=== PATIENT | male | born 1995 | race Caucasian/White ===

== ENCOUNTER 2016-12-08 17:12 | Emergency (ER) | payer OTHER ==
--- NOTE | 2016-12-08 17:47 | ED Physician Chart ---
Chief Complaint/HPI - Patient Information Date Seen:: 12/08/16 Time Seen:: 17:25 Chief Complaint:: Epigastric abdominal pain since about noon today. History of Present Illness:: Onset of epigastric pain since about noon today, characterized as intermittent, localized, and burning. No known precipitating, relieving, or aggravating factors. No fever. No N/V/D. Last BM at about 3:30 pm today which was loose without hematochezia or melena. No lightheadedness. No recent travel, antibiotic use, or ingestion of contaminated food or liquid. Pt had last alcohol use about 2 weeks ago. Denies tobacco, ASA, NSAID use. Pt did have caffeinated beverage, greasy/spicy food consumption. Allergies:: Allergies Allergy/AdvReac Type Severity Reaction Status Date / Time No Known Allergies Allergy Verified 12/08/16 17:25 Vitals:: Vital Signs - 8 hr 12/08/16 17:25 Temp 97.6 F HR 92 RR 16 BP 122/64 O2 Sat % 100 Historian:: Patient Family MD/PCP:: unknown LMP:: N/A Review:: Nurse's Note Reviewed Review of Systems - Review of Systems General/Constitutional: No fever, No chills, No weight loss, No weakness, No diaphoresis, No edema, No loss of appetite Skin: No skin lesions, No rash, No bruising Head: No headache, No light-headedness Eyes: No loss of vision, No pain, No diplopia ENT: No earache, No nasal drainage, No sore throat, No tinnitus Neck: No neck pain, No swelling, No thyromegaly, No stiffness, No mass noted Cardio Vascular: No chest pain, No palpitations, No PND, No orthopnea, No edema Pulmonary: No SOB, No cough, No sputum, No wheezing GI: No nausea, No vomiting, Diarrhea (Nonbloody loose stool, see HPI.), Pain, No melena, No hematochezia, No hematemesis G/U: No dysuria, No frequency, No hematuria Musculoskeletal: No bone or joint pain, No back pain, No muscle pain Endocrine: No polyuria, No polydipsia Psychiatric: No prior psych history Hematopoietic: No bruising, No lymphadenopathy Allergic/Immuno: No urticaria, No angioedema Neurological: No syncope, No focal symptoms, No weakness, No paresthesia, No headache, No seizure, No dizziness, No confusion, No vertigo Past Medical History - Past Medical History Past Medical History: No significant medical hx Family History: Diabetes Melitus (father) Social History: Non Smoker, Alcohol (occasional), No Drug Use, Single, Lives With Parents, 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 Surgical History: other (R knee surgery in 2015) Psychiatricy History: None Medication: None Family Medical History - Family Member Grandmother Ethnicity: Living Status: Still Living Hx Family Cancer: Yes Hx Family Coronary Artery Disease: No Hx Family Congestive Heart Failure: No Hx Family Hypertension: No Hx Family Stroke: No Hx Family Diabetes: Yes Hx Family Seizures: No Hx Family Dementia: No Hx Family AIDS: No Hx Family HIV: No Hx Family COPD: No Hx Family Hepatitis: No Hx Family Psychiatric Problems: No Hx Family Tuberculosis: No Physical Exam - Physical Examination General/Constitutional: Awake, Well-developed, well-nourished, Alert, No distress, GCS 15, Non-toxic appearing, Ambulatory Other Gen/Cons comments:: Breathes comfortably, speaks clearly, and interacts normally. Head: Atraumatic Eyes: Lids, conjuctiva normal, PERRL, EOMI Other Eyes comments:: anicteric sclera Skin: Nl inspection, No rash, No skin lesions, No ecchymosis, Well hydrated, No lymphadenopathy ENMT: External ears, nose nl, Nasal exam nl, Lips, teeth, gums nl, Oropharynx nl , Tonsils nl Neck: Nontender, Full ROM w/o pain, No nuchal rigidity, No mass, No stridor Respiratory: Nl effort/Exclusion, Clear to Auscultation, No Wheeze/Rhonchi/Rales Cardio Vascular: RRR, No murmur, gallop, rubs, NL S1 S2 GI: No organomegaly, No hernia, Normal BS's, Nondistended, No mass/bruits, No McBurney tenderness Other GI comments:: Mild tenderness to palpation at epigastric region. Nondistended. No R/G. Negative Marlo's, Garcia-Pedraza's, or Shai sign. Pt declined rectal exam despite indications, benefits, and related risks, etc., had been explained. : No CVA tenderness Extremities: No tenderness or effusion, Full ROM, normal strength in all extremities, No edema Neuro/Psych: Alert/oriented (oriented x 3), Mood normal, Normal gait, No focal deficits ED Septic Shock - . Is Septic Shock (SBP<90, OR Lactate>4 mmol\L) present?: No - <6hrs of presentation: Vital Signs: Vital Signs - 8 hr 12/08/16 17:25 Temp 97.6 F HR 92 RR 16 BP 122/64 O2 Sat % 100 Reassessment (Disposition) - Reassessment Reassessment:: 1909 Pt has been repeatedly evaluated. Pt feels much better. No N/V/D. Remaining lab results just became available. Lab findings have been reviewed with pt. Pt requests to go home now and does not want further observation/ management in hospital. Aftercare instructions given. Reassessment Condition:: Improved - Diagnosis Diagnosis:: Acute gastritis, stable and currently asymptomatic. - Aftercare/Follow up Instructions Aftercare/Follow-Up Instructions:: Refer to Discharge Instructions Notes:: Bedrest. Avoid greasy/spicy food, alcohol, tobacco, caffeine, ASA or NSAID's, etc. Clear liquid diet for now. Abdominal pain instructions given. F/U with Dr. Caldera or PCP of pt's choice in one day for recheck with repeat lab studies: CBC, BMP. Return to ER immediately if condition worsens or if any further questions/problems. Medication Prescribed:: Ranitidine 150 mg tab one tab po q12h D-20 R-0 - Patient Disposition Discharge/Transfer:: Home Time:: 19:15 Condition at Disposition:: Stable, Improved ED Discharge Plan - Patient Disposition Admit/Discharge/Transfer: PT DISCHARGED HOME Condition at Disposition: Improved Prescriptions: Ranitidine HCl [Ranitidine*] 150 mg PO Q12HR #0 tablet Instructions: Gastritis, Adult Accepting Physician: , Primary [Other]
[2016-12-08 18:13] LABS: % EOSINOPHILS 0.3 % (0.0-5.0); % LYMPHOCYTES 12.5 % (20.0-50.0); % MONOCYTES 5.5 % (2.0-10.0); % NEUTROPHILS 81.7 % (40.0-80.0); HEMATOCRIT 51.7 % (39.0-49.0); HEMOGLOBIN 17.9 gm/dL (13.2-17.3); MEAN CELL VOLUME 89.7 fl (80-99); MEAN CORPUSCULAR HGB CONC 34.6 pg (28.0-36.0); MEAN PLATELET VOLUME 9.1 fl; NEUTROPHILE ABSOLUTE 11.3 Th/cmm (1.8-8.0); PLATELET COUNT 165 Th/cmm (150-400); RED BLOOD COUNT 5.76 Mil/cmm (4.30-5.70); RED CELL DISTRIBUTION WIDTH 13.2 % (11.5-20.0)
[2016-12-08 18:15] LABS: WHITE BLOOD COUNT 13.8 Th/cmm (4.8-10.8)
[2016-12-08 18:23] LABS: PROTHROMBIN TIME (TEST) 10.4 SECONDS (9.5-11.5)
[2016-12-08 18:27] LABS: ALB/GLOB RATIO 1.4 (1.0-1.8); ALKALINE PHOSPHATASE 72 U/L (34-104); AMYLASE SERUM 44 U/L (29-103); ANION GAP 13.5 (7.0-16.0); BILIRUBIN,TOTAL 0.9 mg/dL (0.3-1.0); BUN - UREA NITROGEN 23 mg/dL (7-25); CALCIUM SERUM 10.3 mg/dL (8.6-10.3); CARBON DIOXIDE 22.2 mEq/L (21.0-31.0); CHLORIDE 105 mEq/L (98-107); GLUCOSE 114 mg/dL (70-105); LIPASE 10 U/L (11-82); POTASSIUM SERUM 3.7 mEq/L (3.5-5.1); SGOT 21 U/L (13-39); SGPT/ALT 17 U/L (7-52); SODIUM SERUM 137 mEq/L (136-145)
== END 2016-12-08 19:10 | disposition home or self-care (01) ==
LOC: ER 17:12
DX: K29.00 Acute gastritis without bleeding (principal)
CPT/HCPCS: 36415-UA; 80053-TC; 82150-TC; 83690-TC; 85025-TC; 85610-TC; 96374; J3490; Z7502; Z7610

== ENCOUNTER 2018-03-25 16:08 | Emergency (ER) | payer OTHER ==
--- NOTE | 2018-03-25 18:51 | ED Physician Chart ---
ED Chief Complaint/HPI - Patient Information Date Seen:: 03/25/18 Time Seen:: 16:25 Chief Complaint:: Scrotal Pain History of Present Illness:: onset x 3 days of intermittent left scrotal pain and ? lump in the scrotum which resolved upon ER arrival; pt denies trauma, H/As, S/T, neck pain, C/P, SOB , Abd. Pain, A/N/V/D/C, fever, chills, bleeding, penile discharge, or urinary s/ s; pt is eating and urinating well; pt last urinated one hour [employer] Allergies:: Allergies Allergy/AdvReac Type Severity Reaction Status Date / Time No Known Allergies Allergy Verified 12/08/16 17:25 Vitals:: Vital Signs - 8 hr 03/25/18 16:26 Temp 99.1 F HR 90 RR 16 BP 130/77 O2 Sat % 98 Historian:: Patient, Family Member Review:: Nurse's Note Reviewed ED Review of Systems - Review of Systems General/Constitutional: No fever, No chills, No weight loss, No weakness, No diaphoresis, No edema, No loss of appetite Skin: No skin lesions, No rash, No bruising Head: No headache, No light-headedness Eyes: No loss of vision, No pain, No diplopia ENT: No earache, No nasal drainage, No sore throat, No tinnitus Neck: No neck pain, No swelling, No thyromegaly, No stiffness, No mass noted Cardio Vascular: No chest pain, No palpitations, No PND, No orthopnea, No edema Pulmonary: No SOB, No cough, No sputum, No wheezing GI: No nausea, No vomiting, No diarrhea, No pain, No melena, No hematochezia, No constipation, No hematemesis G/U: No dysuria, No frequency, No hematuria, No nacturia Musculoskeletal: No bone or joint pain, No back pain, No muscle pain Endocrine: No polyuria, No polydipsia Psychiatric: No prior psych history, No depression, No anxiety, No suicidal ideation, No homicidal ideation, No auditory hallucination, No visual hallucination Hematopoietic: No bruising, No lymphadenopathy Allergic/Immuno: No urticaria, No angioedema Neurological: No syncope, No focal symptoms, No weakness, No paresthesia, No headache, No seizure, No dizziness, No confusion, No vertigo ED Past Medical History - Past Medical History Obtainable: Yes Past Medical History: No significant medical hx Family History: None Social History: Non Smoker, No Alcohol, No Drug Use, Single, Lives With Parents Surgical History: None Psychiatricy History: None Medication: Reviewed Family Medical History - Family Member Grandmother History Unknown: Yes Ethnicity: Living Status: Still Living Hx Family Cancer: Yes Hx Family Coronary Artery Disease: No Hx Family Congestive Heart Failure: No Hx Family Hypertension: No Hx Family Stroke: No Hx Family Diabetes: Yes Hx Family Seizures: No Hx Family Dementia: No Hx Family AIDS: No Hx Family HIV: No Hx Family COPD: No Hx Family Hepatitis: No Hx Family Psychiatric Problems: No Hx Family Tuberculosis: No ED Physical Exam - Physical Examination General/Constitutional: Awake, Well-developed, well-nourished, Alert, No distress, GCS 15, Non-toxic appearing, Ambulatory Head: Atraumatic Eyes: Lids, conjuctiva normal, PERRL, EOMI Skin: Nl inspection, No rash, No skin lesions, No ecchymosis, Well hydrated, No lymphadenopathy ENMT: External ears, nose nl, TM canals nl, Nasal exam nl, Lips, teeth, gums nl , Oropharynx nl, Tonsils nl Neck: Nontender, Full ROM w/o pain, No JVD, No nuchal rigidity, No bruit, No mass, No stridor Other Neck comments:: supple; no meningeal signs; no cervical tenderness; no bruits Respiratory: Nl effort/Exclusion, Clear to Auscultation, No Wheeze/Rhonchi/Rales Cardio Vascular: RRR, No murmur, gallop, rubs, NL S1 S2, Carotid/Femoral/Distal pulses equal bilaterally GI: No tenderness/rebounding/guarding, No organomegaly, No hernia, Normal BS's, Nondistended, No mass/bruits, No McBurney tenderness, Rectum exam nl Other GI comments:: no pulsatile masses : No CVA tenderness, NL external genitalia, No discharge Other comments:: + Mild Left Epididymus Tenderness; otherwise unremarkable exam Extremities: No tenderness or effusion, Full ROM, normal strength in all extremities, No edema, Normal digits & nails Neuro/Psych: Alert/oriented, DTR's symmetric, Normal sensory exam, Normal motor strength, Judgement/insight normal, Mood normal, Normal gait, No focal deficits Other Neuro/Psych comments:: no focal signs Misc: Normal back, No paraspinal tenderness ED Labs/Radiology/EKG Results - Lab Results Comments:: deferred by pt - Radiology Results Comments:: U/S: NAD; no Testicular Torsion; ? Left Epididymitis ED Septic Shock - . Is Septic Shock (SBP<90, OR Lactate>4 mmol\L) present?: No - <6hrs of presentation: Vital Signs: Vital Signs - 8 hr 03/25/18 16:26 Temp 99.1 F HR 90 RR 16 BP 130/77 O2 Sat % 98 ED Reassessment (Disposition) - Reassessment Reassessment:: pt tolerated po fluids well in ER; pt is asymptomatic upon discharge Reassessment Condition:: Improved - Diagnosis Diagnosis:: Dx: Left Epididymitis; Scrotal Pain-Resolved; Scrotal Pain - Aftercare/Follow up Instructions Aftercare/Follow-Up Instructions:: Counseled pt regarding lab results/diagnosis & need follow up, Refer to Discharge Instructions, Counseled pt & family regarding lab results/diagnosis & need follow up Medication Prescribed:: Rx: Doxycycline 100mg po bid x 10 days - Patient Disposition Discharge/Transfer:: Home Condition at Disposition:: Stable, Improved (RTER prn if existing s/s reoccur and/or get worse and/or any other new s/s occur; ACIs given for all above Dx; U/ S Care Instructions; Refer to Urologist/Yarn Rewinder EVARISTO; F/U with PMD in one day or prn; RTER prn if concerned) ED Discharge Plan - Patient Disposition Admit/Discharge/Transfer: PT DISCHARGED HOME Condition at Disposition: Stable Prescriptions: Doxycycline Monohydrate 100 mg PO BID #20 tab Instructions: Epididymitis
--- NOTE | 2018-03-26 08:08 | Diagnostic Imaging Report ---
Ultrasound scrotum HISTORY: Left scrotal pain, rule out mass COMPARISON: None Technique/procedure: Sonography of the scrotum and contents was performed in multiple planes. FINDINGS: The right testicle measures 2.2 x 2.6 x 3.8 cm and demonstrates normal echogenicity with no evidence of focal lesions.The right epididymal head measures 1 cm The left testicle measures 2.6 x 2.1 x 3.4 cm and demonstrates normal echogenicity with no evidence of focal lesions. There is suboptimal assessment left epididymal head body. The left epididymal head measures 0.8 cm. There is mild prominence of the left epididymal body. Vascular flow to bilateral testicles are noted. No evidence of a hydrocele. IMPRESSION: No sonographic evidence of testicular torsion. Suboptimal assessment of the left epididymal head and left epididymal body. There may be prominence of the left epididymal body. Inflammatory process/epididymitis cannot be excluded. Please correlate with the findings. Short-term follow-up is suggested. No evidence of hydrocele.
== END 2018-03-25 18:41 | disposition home or self-care (01) ==
LOC: ER 16:08
DX: N45.1 Epididymitis (principal)
CPT/HCPCS: 76870-TC; Z7502

== ENCOUNTER 2018-05-06 03:01 | Emergency (ER) | payer OTHER ==
[2018-05-06 03:47] LABS: % BASOPHILS 1.1 % (0.0-2.0); % EOSINOPHILS 0.6 % (0.0-5.0); % LYMPHOCYTES 10.4 % (20.0-50.0); % NEUTROPHILS 80.9 % (40.0-80.0); BASOPHILE ABSOLUTE 0.1 Th/cumm (0-0.2); EOSINOPHILE ABSOLUTE 0.1 Th/cmm (0.1-0.4); HEMATOCRIT 47.4 % (41.0-60); HEMOGLOBIN 16.1 gm/dL (12-16); LYMPHOCYTE ABSOLUTE 1.3 Th/cmm (1.5-3.0); MEAN CELL VOLUME 89.5 fl (80-99); MEAN CORPUSCULAR HEMOGLOBIN 30.4 pg (26.0-30.0); MEAN CORPUSCULAR HGB CONC 33.9 pg (28.0-36.0); MONOCYTE ABSOLUTE 0.9 Th/cmm (0.3-1.0); NEUTROPHILE ABSOLUTE 10.4 Th/cmm (1.8-8.0); PLATELET COUNT 186 Th/cmm (150-400); RED CELL DISTRIBUTION WIDTH 12.2 % (11.5-20.0); WHITE BLOOD COUNT 12.8 Th/cmm (4.8-10.8)
[2018-05-06 03:50] LABS: URINE SOURCE RANDOM
[2018-05-06 03:54] LABS: URINE BILIRUBIN NEGATIVE (NEGATIVE); URINE BLOOD TRACE (NEGATIVE); URINE GLUCOSE (UA) NEGATIVE (NEGATIVE); URINE KETONE NEGATIVE (NEGATIVE); URINE LEUKOCYTE ESTERASE NEGATIVE (NEGATIVE); URINE MICROSCOPIC INDICATED? YES; URINE NITRATE NEGATIVE (NEGATIVE); URINE PROTEIN NEGATIVE (NEGATIVE); URINE UROBILINOGEN 0.2 E.U./dL (0.2 - 1.0)
[2018-05-06 04:02] LABS: URINE CLARITY CLEAR (CLEAR); URINE COLOR YELLOW
[2018-05-06 04:07] LABS: URINE BACTERIA OCCASIONAL /hpf (NONE SEEN); URINE EPITHELIAL CELLS RARE /lpf (FEW); URINE RBC 0-2 /hpf (0-5); URINE WBC 0-2 /hpf (0-5)
[2018-05-06 04:29] LABS: ALB/GLOB RATIO 1.6 (1.0-1.8); ALBUMIN 4.1 gm/dL (4.2-5.5); ALKALINE PHOSPHATASE 78 U/L (34-104); BILIRUBIN,TOTAL 0.6 mg/dL (0.3-1.0); BUN - UREA NITROGEN 21 mg/dL (7-25); CALCIUM SERUM 9.5 mg/dL (8.6-10.3); CARBON DIOXIDE 24.4 mEq/L (21.0-31.0); CREATININE - SERUM 1.1 mg/dL (0.7-1.3); GFR AFRICAN-AMERICAN > 60.0 ml/min (>90); GFR NON AFRICAN-AMERICAN > 60.0 ml/min; GLUCOSE 99 mg/dL (70-105); SGOT 23 U/L (13-39); SGPT/ALT 35 U/L (7-52); TOTAL PROTEIN,SERUM 6.7 gm/dL (6.0-8.3)
[2018-05-06] MEDS ORDERED: cefTRIAXone 1 GM in Sodium Chloride 0.9% 50 ML IV ONE (05:06)
[2018-05-06] MEDS ORDERED: Sodium Chloride 0.9% 1,000 ML IV ONE (05:07)
--- NOTE | 2018-05-06 05:12 | ED Physician Chart ---
ED Chief Complaint/HPI - Patient Information Date Seen:: 05/06/18 Time Seen:: 05:11 Chief Complaint:: Left scrotal discomfort History of Present Illness:: 22 yo male had left scrotal discomfort for 1 month. Initially, ultrasound suspected left epididymitis and patient was given doxycilin for 10 days without improvement. Patient then went to a different physician who confirmed epididymitis with a repeat ultrasound and prescribed a different antibiotics for 10 days. No improvement. Patient had sudden onset of fever 2 hours prior to ER visit. Patient stated chills. Patient denied being sexually active. Allergies:: Allergies Allergy/AdvReac Type Severity Reaction Status Date / Time No Known Allergies Allergy Verified 05/06/18 03:15 Vitals:: Vital Signs - 8 hr 05/06/18 03:05 Temp 98.8 F HR 101 RR 18 BP 132/82 O2 Sat % 96 ED Review of Systems - Review of Systems General/Constitutional: Fever, Chills Skin: No bruising Head: Headache Eyes: No pain ENT: No nasal drainage Neck: No neck pain Cardio Vascular: No chest pain Pulmonary: No SOB GI: No nausea, No vomiting G/U: No frequency Musculoskeletal: No bone or joint pain Neurological: No focal symptoms ED Past Medical History - Past Medical History Past Medical History: PUD/GERD Social History: Non Smoker, Alcohol, No Drug Use Surgical History: other (Right knee surgery for torn ACL) Family Medical History - Family Member Grandmother History Unknown: Yes Ethnicity: Living Status: Still Living Hx Family Cancer: Yes Hx Family Coronary Artery Disease: No Hx Family Congestive Heart Failure: No Hx Family Hypertension: No Hx Family Stroke: No Hx Family Diabetes: Yes Hx Family Seizures: No Hx Family Dementia: No Hx Family AIDS: No Hx Family HIV: No Hx Family COPD: No Hx Family Hepatitis: No Hx Family Psychiatric Problems: No Hx Family Tuberculosis: No ED Physical Exam - Physical Examination General/Constitutional: Awake, Alert Head: Atraumatic Eyes: PERRL Skin: No ecchymosis ENMT: Nasal exam nl Neck: No nuchal rigidity Respiratory: Clear to Auscultation, No Wheeze/Rhonchi/Rales Cardio Vascular: RRR, No murmur, gallop, rubs, NL S1 S2 GI: No tenderness/rebounding/guarding : No CVA tenderness Other comments:: mild swelling, soft, non-tender soft tissue, superior and posterior to the left testicle within the superior scrotum Extremities: normal strength in all extremities Neuro/Psych: No focal deficits ED Labs/Radiology/EKG Results - Lab Results Results: Laboratory Tests 05/06/18 05/06/18 05/06/18 02:35 02:35 02:35 WBC 12.8 H RBC 5.30 Hgb 16.1 Hct 47.4 MCV 89.5 MCH 30.4 H MCHC Differential 33.9 RDW 12.2 Plt Count 186 MPV 9.0 Neutrophils % 80.9 H Lymphocytes % 10.4 L Monocytes % 7.0 Eosinophils % 0.6 Basophils % 1.1 Carbon Dioxide 24.4 BUN 21 Creatinine 1.1 Est GFR ( Amer) > 60.0 Est GFR (Non-Af Amer) > 60.0 BUN/Creatinine Ratio 19.1 Glucose 99 Whole Bld Lactic Acid 1.27 Calcium 9.5 Total Bilirubin 0.6 AST 23 ALT 35 Alkaline Phosphatase 78 Total Protein 6.7 Albumin 4.1 L Globulin 2.6 Albumin/Globulin Ratio 1.6 Urine Source Urine Color Urine Clarity Urine pH Ur Specific [place] Urine Protein Urine Glucose (UA) Urine Ketones Urine Blood Urine Nitrate Urine Bilirubin Urine Urobilinogen Ur Leukocyte Esterase Urine RBC Urine WBC Ur Epithelial Cells Urine Bacteria 05/06/18 03:15 WBC RBC Hgb Hct MCV MCH MCHC Differential RDW Plt Count MPV Neutrophils % Lymphocytes % Monocytes % Eosinophils % Basophils % Carbon Dioxide BUN Creatinine Est GFR ( Amer) Est GFR (Non-Af Amer) BUN/Creatinine Ratio Glucose Whole Bld Lactic Acid Calcium Total Bilirubin AST ALT Alkaline Phosphatase Total Protein Albumin Globulin Albumin/Globulin Ratio Urine Source RANDOM Urine Color YELLOW Urine Clarity CLEAR Urine pH 6.0 Ur Specific [place] <= 1.005 Urine Protein NEGATIVE Urine Glucose (UA) NEGATIVE Urine Ketones NEGATIVE Urine Blood TRACE Urine Nitrate NEGATIVE Urine Bilirubin NEGATIVE Urine Urobilinogen 0.2 Ur Leukocyte Esterase NEGATIVE Urine RBC 0-2 H Urine WBC 0-2 Ur Epithelial Cells RARE Urine Bacteria OCCASIONAL ED Assessment - Assessment General Assessment: Left epididymitis Leukocytosis Gastritis Assessment/Comments:: CBC, CMP, UA Rocephin 1g IV NS 1L IV bolus Protonix 40mg po D/c home Ciprofloxacin 500mg po bid x 10 days F/u urologist in one week. Return to ER if symptoms worsen. ED Septic Shock - . Is Septic Shock (SBP<90, OR Lactate>4 mmol\L) present?: No - <6hrs of presentation: Vital Signs: Vital Signs - 8 hr 05/06/18 03:05 Temp 98.8 F HR 101 RR 18 BP 132/82 O2 Sat % 96 ED Reassessment (Disposition) - Reassessment Reassessment Condition:: Improved - Patient Disposition Discharge/Transfer:: Home
[2018-05-06] MEDS ORDERED: Pantoprazole 40 mg EC Tab PO STA (05:35)
[2018-05-06] MEDS ORDERED: Pantoprazole 40 mg EC Tab PO ONE (05:39)
[2018-05-06 06:27] LABS: ANION GAP 15.3 (7.0-16.0); CHLORIDE 101 mEq/L (98-107); POTASSIUM SERUM 3.7 mEq/L (3.5-5.1); SODIUM SERUM 137 mEq/L (136-145)
== END 2018-05-06 07:10 | disposition home or self-care (01) ==
LOC: ER 03:01
DX: N45.1 Epididymitis (principal); D72.829 Elevated white blood cell count, unspecified; K29.70 Gastritis, unspecified, without bleeding; K21.9 Gastro-esophageal reflux disease without esophagitis
CPT/HCPCS: 99284; 96365; 36415; 83605; 85025; 87086; 81001; 80053; 87040 ×2; J0696; J7030; Z7502; Z7610